=== PATIENT | male | born 1990 | race Caucasian/White ===

== ENCOUNTER 2021-07-24 09:25 | Emergency (ER) | payer OTHER ==
[2021-07-24 09:39] VITALS: BP 151/97; PULSE 111; TEMP 100.2; BMI 31.9
[2021-07-24] MEDS ORDERED: IBUPROFEN 600 MG TABLET (FP) PO ONE (09:51)
== END 2021-07-24 12:08 | disposition home or self-care (01) ==
LOC: JER 09:25
DX: J09.X2 Influenza due to identified novel influenza A virus with other respiratory manifestations (principal)
CPT/HCPCS: 0241U-QW; 71045-TC-FY; 87807; 99284-25; C9803-CS; U0003; U0005

== ENCOUNTER 2021-07-28 18:03 | Emergency (ER) | payer OTHER ==
[2021-07-28 18:20] VITALS: BP 147/92; PULSE 58; TEMP 97.8; BMI 31.8
[2021-07-28] MEDS ORDERED: AMOXICILLIN 500 MG CAPSULE (FP) PO ONE (19:45)
[2021-07-28] MEDS ORDERED: AMOXICILLIN 250 MG CAPSULE ONE (19:48)
== END 2021-07-28 20:01 | disposition home or self-care (01) ==
LOC: JERFT 18:03
DX: H65.01 Acute serous otitis media, right ear (principal)
CPT/HCPCS: 99283-25

== ENCOUNTER 2023-10-11 19:37 | Emergency (ER) | payer OTHER ==
[2023-10-11] MEDS: IBUPROFEN 600 MG TABLET (FP) PO ONE (19:57)
[2023-10-11] MEDS ORDERED: IBUPROFEN 600 MG TABLET (FP) PO ONE (19:58)
[2023-10-11 20:01] VITALS: BP 116/74; PULSE 74; RESP 16; TEMP 98.2; BMI 30.1
== END 2023-10-11 20:03 | disposition home or self-care (01) ==
LOC: FER 19:37
DX: S39.012A Strain of muscle, fascia and tendon of lower back, initial encounter (principal); V49.49XA Driver injured in collision with other motor vehicles in traffic accident, initial encounter; Y92.410 Unspecified street and highway as the place of occurrence of the external cause
CPT/HCPCS: 99283-25